=== PATIENT | female | born 1940 | race Caucasian/White ===

== ENCOUNTER → 2017-01-24 | Day surgery (SDC) | payer OTHER ==
[2017-01-15 11:13] VITALS: BMI 29.0
[~2017-01-24] VITALS: Ht 154.9 cm; Wt 70.0 kg
[~2017-01-24] MED LIST: CALCIUM CARBONATE PEG; CITA10TA8 PEG; CLON1TAB3 PEG; COLACE PEG; DEPAKOTE PEG; DRGTP25 EXT; FAMO20TA11 PEG; LEVE250T PEG; LEVO100T PEG; LIDOCAINE HCL 2% JELLY 30 ML TUBE EXT ONE; LORA5SOL2 PEG; NUTR1.5L4 PEG; POLY335019 PO; RISP0.5T10 PEG; VITAMIN D PEG; [UNRECOGNIZED DRUG - CODE] PEG
[2017-01-24 14:06] VITALS: Ht 154.9 cm; Wt 70.0 kg
--- NOTE | 2017-01-24 15:52 | Endo History and Physical ---
History & Physical Date of Service: Jan 24, 2017. Chief Complaint: MALFUNCTION OF PEG TUBE Referring Physician: NONE History of Present Illness Replace PEG tube Past Surgical History Hx Cardiac Surgery: No Hx Internal Defibrillator: No Hx Pacemaker: No Hx Abdominal Surgery: Yes (PEG TUBE INSERTION) Hx of Implantable Prosthesis: No Hx Post-Op Nausea and Vomiting: No Hx Cancer Surgery: No Hx Thoracic Surgery: No Hx Orthopedic: Yes (ORIF LEFT HIP (FX REPAIR)) Hx Urinary Tract Surgery: No Social History Smoking Status: Unknown if Ever Smoked Hx Substance Use: No Hx Alcohol Use: No Allergies Coded Allergies: Sulfa Antibiotics (Verified Allergy, Unknown, UNKNOWN, 01/15/17) Sulfacetamide (Verified Allergy, Unknown, UNKNOWN, 01/15/17) Current Medications Reported Home Medications Medications Dose Route/Sig Max Daily Dose Days Date Category Keppra (Levetiracetam) 250 Mg Tab 500 Mg PEG BID 01/24/17 Reported Celexa (Citalopram Hydrobromide) 10 Mg Tab 10 Mg PEG QPM 01/15/17 Reported [Colace] 1 Dose PEG QPM 01/15/17 Reported Isosource 1.5 Mathew (Nutritional Supplements) 1 Liq Liq 165 Ml PEG Q4H 01/15/17 Reported Risperdal (Risperidone) 0.5 Mg Tab 0.5 Mg PEG TID 01/15/17 Reported [Vitamin D] 1 Dose PEG TID 01/15/17 Reported [Calcium Carbonate] 1 Dose PEG TID 01/15/17 Reported Lioresal Intrathecal (Baclofen) 10 Mg/20 Ml Inj 5 Mg PEG TID 01/15/17 Reported Fentanyl 25 Mcg Tdsy 1 Dose EXT CHANGE EVERY 72 HR 01/15/17 Reported Klonopin (Clonazepam) 1 Mg Tab 1 Mg PEG BID 01/15/17 Reported Pepcid (Famotidine) 20 Mg Tab 20 Mg PEG BID 01/15/17 Reported Miralax (Polyethylene Glycol 3350) 1 Pow Pow 17 Gm PO QPM 01/15/17 Reported Claritin (Loratadine) 5 Mg/5 Ml Laura 5 Ml PEG QAM 30 01/15/17 Reported Synthroid (Levothyroxine Sodium) 100 Mcg Tab 100 Mcg PEG QAM 01/15/17 Reported Vital Signs Weight (Kilograms): 70.00 Height (Feet): 5 Height (Inches): 1 Date Time Temp Pulse Resp B/P (MAP) Pulse Ox O2 Delivery O2 Flow Rate FiO2 01/24/17 14:12 36.6 67 18 133/66 (88) 95 Room Air Physical Exam General Appearance: + pertinent finding (Sever retardation) Respiratory/Chest: Respiratory effort: no dyspnea Cardiovascular: Heart Auscultation: RRR Abdomen: Bowel Sounds: pertinent finding (PEG tube in place) Assessment and Plan For PEG tube replacement
[2017-01-24 15:53] VITALS: BP 168/63; PULSE 68; O2SAT 96
--- NOTE | 2017-01-24 16:10 | GI REPORT ---
Procedure Date: 01/24/2017 3:52 PM Procedure: Non-endoscopic Tube Procedure Indications: Routine exchange PEG tube Medicines: Lidocaine 1% mg topically Complications: No immediate complications. Estimated Blood Loss: Estimated blood loss was minimal. Procedure: After obtaining informed consent, the site was prepped and the procedure was performed.The procedure was accomplished without difficulty. The patient tolerated the procedure well. Findings: Upon external examination, normal-appearing skin was found surrounding the stomal opening. The gastrostomy tube was patent. The gastrostomy tube had been in place for an extended length of time and required removal. The existing PEG site was cleaned. The existing PEG balloon was deflated and removed. A 20 Fr YORDAN-REGAN low-profile gastrostomy tube was lubricated and placed into the existing gastrostomy port. Saline was used to distend the balloon that was previously tested. When positioned, the skin marking was noted to be 3.5 cm at the external bumper. The final tension and compression of the abdominal wall by the gastrostomy tube and external bumper were checked and revealed that the bumper was loose and lightly touching the skin. Placement into the stomach [Tube Confirmation]. The tube was capped, and the tube site was cleaned and dressed. Estimated blood loss was minimal. Impression: - The gastrostomy tube had been in place for an extended length of time and was removed and replaced with a 20 Fr YORDAN-REGAN low-profile gastrostomy tube. - No specimens collected. Recommendation: - Discharge patient to home (via wheelchair). - Continue present medications. - Return to primary care physician PRN. Luther Guzman M.D. Luther Guzman MD 01/24/2017 3:59:43 PM This report has been signed electronically. Note Initiated On: 01/24/2017 3:52 PM I attest to the content of the Intraoperative Record and orders documented therein, exceptions below
== END | disposition home or self-care (01) ==
LOC: C.GI 13:55
PROVIDERS: ATTEND Internal Medicine Gastroenterology
DX: Z43.1 Encounter for attention to gastrostomy (principal); R56.9 Unspecified convulsions; Z86.718 Personal history of other venous thrombosis and embolism; Z79.899 Other long term (current) drug therapy; E07.9 Disorder of thyroid, unspecified